=== PATIENT | female | born 1955 | race Caucasian/White ===

== ENCOUNTER 2017-06-01 15:02 | Emergency (ER) | payer SELFPAY ==
[2017-06-01] MEDS ORDERED: LORazepam 2 MG/ML INJ ONE ×2 (15:07→16:05)
[2017-06-01] MEDS ORDERED: HALOPERIDOL LACT 5 MG/ML INJ ONE ×2 (15:07→16:05)
[2017-06-01] MEDS ORDERED: HALOPERIDOL LACT 5 MG/ML INJ IM ONE ×2 (15:15→16:17)
[2017-06-01] MEDS ORDERED: LORazepam 2 MG/ML INJ IM ONE (15:15)
--- NOTE | 2017-06-01 15:26 | EDPHY ---
General Narrative: CHIEF COMPLAINT: M1 hold HISTORY OF PRESENT ILLNESS: Patient arrives on an M1 hold completed by [facility]. They documentation states that she was being combative and evicted from the day in and refusing to leave. She was exhibiting grave disability to them, thus they placed her on an M1 hold. She will not provide any information to me what so ever. She continues to yell at me asking me to leave an informed me that "you put me in a cold room, leave me the fuck alone." No other information obtainable from her. PSYCHIATRIC DIAGNOSES: Unable to obtain PRIOR PSYCHIATRIC EVALUATIONS: Unable to obtain M1/DETAINER: [place] just prior to arrival REVIEW OF SYSTEMS: Ten systems reviewed and are negative unless otherwise noted in the HPI EXAMINATION General Appearance: Alert, no distress, unkempt Head: normocephalic, atraumatic. No obvious outward signs of trauma Eyes: Moving her eye symmetrically. Unable to formally exam is she will not cooperate ENT, Mouth: Managing her secretions. Unable to formally examine she will not cooperate Neck: Normal inspection. Unable to formally examine she will not cooperate Respiratory: No retractions or distress.Unable to formally examine she will not cooperate Cardiovascular: Unable to palpate or auscultate due to lack of cooperation Gastrointestinal: No distention noted.Unable to formally examine she will not cooperate Neurological: Awake and alert. Unable to formally examined. Skin: Warm and dry, no rash. No obvious petechiae purpura Extremities: Moving all 4 extremities spontaneously Psychiatric: Agitated moved and aggressive conversation. Will not answer any of my questions DIFFERENTIAL DIAGNOSES: Including but not limited to grave Disability, intoxication, delirium, dehydration, substance abuse MDM: 3:22 p.m. M1 hold due to grave disability, completed by [facility]. The patient is completely uncooperative, agitated and combative prior to my examination. She will not provide any information to me. She will not cooperate with any physical exam. Intramuscular Haldol and Ativan has been administered. Her heart rate was elevated during her agitation, thus I asked her to be moved to room 18 to the we could monitor her. She is awake and very vocal and in no apparent acute distress. 4:10 p.m. Notified by RN that the patient is still not been compliant in that she has been able to obtain laboratory studies, EKG or urine. I have evaluated the patient with Dr. Felder. She still refuses to cooperate. She is laying in the position and will not allow us to obtain any further information or laboratory studies. We agree with additional 5 mg of IM Haldol, as well as 50 mg of Benadryl IM. 4:59 p.m. At this time the patient has become more somnolent cooperative. Laboratory studies have been drawn. EKG has been obtained. Chest x-ray has been ordered. At this time Dr. Felder will assume care the patient. She is pending medical clearance for psychiatric evaluation. EKG interpretation: Dr. Felder SUPERVISION: Patient was evaluated and examined in conjunction with my secondary supervising physician as documented. We have both examined the patient. (Tim Dong) Medical Decision Making: I have also seen the patient in the emergency department. The patient is uncooperative and does not answer questions. She tells me she wants to leave. The patient and I reviewed the history of being uncooperative with the police as well as uncooperative in the department. She has already received Haldol 5 mg and Ativan 2 mg IM but remains combative and noncooperative. She and I discussed further medication because of this behavior. I asked her again about allergies as she has refused answer. She refused to answer me as well. I explained that we were going to be giving her further medication. She is given Haldol 5 mg and Benadryl 50 mg IM. Recheck again at 4:35 p.m.. Patient is stable Re-evaluation 6:25 p.m.. Patient sleeping. 30 milliliter/kilogram fluid bolus. Blood cultures were obtained. IV Rocephin. Patient's lactate is normal. On serial evaluations patient remains stable. She is awaiting mental health evaluation. Differential diagnosis is that the patient has a apparent community-acquired pneumonia. She is not hypoxic. She has no evidence for sepsis. She has been treated initially for her pneumonia. She is also waiting mental health evaluation for being gravely disabled Care to Dr. Harris at 2310 (Toño Felder) 2310 care assumed by me from Dr. Felder pending mental health evaluation. ( Manuel Harris) I assumed care of the patient of the patient at 0700. The patient was seen by Mental Health. She is now common cooperative. She reports that she is currently homeless. She has typically been receiving her care in [place]. She denies significant psychiatric history. She does likely suffer from a personality disorder. She was found not to be suicidal, homicidal or gravely disabled by the psychiatric branch service representative. Dr. Dorian Velazquez vacated the patient's 72 hr hold. The patient was discharged home with a prescription for her outpatient amoxicillin for treatment of a subtle pneumonia. (Elmer Hoang) - Diagnostics Imaging Results: Imaging Impressions Chest X-Ray 06/01/17 16:59 Impression: 1. Patchy infiltrate, consistent with pneumonia at the right lung base. 2. There are a couple of questionable nodular opacities in the left mid and upper lung zones. The above findings should be reevaluated in 4 weeks to assure resolution. If persistent, chest CT imaging would be indicated. 3. Retrocardiac hiatal hernia. 4. Rotatory thoracolumbar scoliosis. Findings were discussed with Toño Felder M.D. at 18:02, on 06/01/2017. Chest x-ray reviewed by me and discussed with Dr. Lyons shows a right lower lobe pneumonia. (Toño Felder) - Objective Vital Signs: Initial Vital Signs Temperature (C) 99.0 F 06/01/17 15:02 Heart Rate 137 H 06/01/17 15:02 Respiratory Rate 20 06/01/17 15:02 Blood Pressure 159/99 H 06/01/17 15:02 O2 Sat (%) 88 L 06/01/17 15:02 O2 Delivery Mode Room Air Allergies/Adverse Reactions: No Known Allergies Allergy (Verified 06/02/17 08:49) Home Medications: Medication Instructions Recorded Amoxicillin Trihydrate [Amoxil] 500 mg PO TID 7 Days cap 06/01/17 Laboratory Results: Laboratory Results 06/01/17 16:57 06/01/17 16:57 Microbiology Results: MICROBIOLOGY 06/01/17 19:25 Blood Blood Culture - Preliminary 06/01/17 18:50 Blood Blood Culture - Preliminary Medications Given: Discontinued Medications Amoxicillin (Amoxicillin) 500 mg PO TID SUKHJINDER PRN Reason: Protocol Stop: 06/08/17 08:59 Last Admin: 06/02/17 07:58 Dose: 500 mg Diphenhydramine HCl (Benadryl Injection) 50 mg IM EDNOW ONE Stop: 06/01/17 16:17 Last Admin: 06/01/17 16:23 Dose: 50 mg Haloperidol Lactate (Haldol Injection) 5 mg IM EDNOW ONE Stop: 06/01/17 15:16 Last Admin: 06/01/17 15:15 Dose: 5 mg Haloperidol Lactate (Haldol Injection) 5 mg IM EDNOW ONE Stop: 06/01/17 16:18 Last Admin: 06/01/17 16:23 Dose: 5 mg Ceftriaxone Sodium/Dextrose (Rocephin 1 Gm (Premix)) 50 mls @ 100 mls/hr IV EDNOW ONE PRN Reason: Protocol Stop: 06/01/17 18:53 Last Admin: 06/01/17 20:04 Dose: 50 mls Sodium Chloride (Ns) 1,800 mls @ 300 mls/hr 30 ml/kg infuse over 6 hr (1800 ml ) IV EDNOW ONE PRN Reason: Protocol Stop: 06/02/17 00:23 Last Admin: 06/01/17 18:54 Dose: 1,800 mls Lorazepam (Ativan Injection) 2 mg IM EDNOW ONE Stop: 06/01/17 15:16 Last Admin: 06/01/17 15:15 Dose: 2 mg Departure - Departure Disposition: Home, Routine, Self-Care Clinical Impression: Pneumonia Qualifiers: Pneumonia type: due to unspecified organism Laterality: unspecified laterality Lung location: unspecified part of lung Qualified Code(s): J18.9 - Pneumonia, unspecified organism Condition: Good Instructions: Community Acquired Pneumonia (ED) Additional Instructions: 1. You have a pneumonia in your right lower lung. You have received IV antibiotics and I have written you a prescription for further oral antibiotics. Return for worsening symptoms. 2. Take oral antibiotics as prescribed. 3. Please schedule a [facility] for [facility]heck within the week. 4. Return to the emergency department for markedly worsening symptoms or other concerns. Referrals: [facility],. [Clinic] - As per Instructions Prescriptions: Amoxicillin Trihydrate [Amoxil] 500 mg PO TID 7 Days cap
--- NOTE | 2017-06-01 16:51 | CPEKG ---
Heart Rate: 114 RR Interval: 526 P-R Interval: 176 QRSD Interval: 92 QT Interval: 316 QTC Interval: 436 P Morton: -89 QRS Morton: 6 T Wave Morton: -36 EKG Severity - ABNORMAL ECG - EKG Impression: ECTOPIC ATRIAL TACHYCARDIA EKG Impression: PROBABLE LEFT ATRIAL ABNORMALITY EKG Impression: LOW VOLTAGE IN FRONTAL LEADS EKG Impression: PROBABLE POSTERIOR INFARCT EKG Impression: ABNORMAL T, PROBABLE ISCHEMIA, INFERIOR LEADS Electronically Signed By: Brenden Calderón 02-Jun-2017 13:58:21
[2017-06-01 17:08] LABS: PLATELET COUNT 462 10^3/uL (150-400)
[2017-06-01] MEDS ORDERED: NS 1,800 ML IV ONE (18:24)
[2017-06-02 08:06] VITALS: BP 114/72; PULSE 92; RESP 17; TEMP 98.4; O2SAT 91
== END 2017-06-02 13:37 | disposition home or self-care (01) ==
DX: J18.9 Pneumonia, unspecified organism (principal)
CPT/HCPCS: 80305; 96365; G0480; J0696; J1200; J1630; J2060

== ENCOUNTER 2017-06-05 11:08 | Emergency (ER) | payer OTHER ==
[~2017-06-05 11:08] MED LIST: AZITHROMYCIN 250 MG TAB PO SCH
[2017-06-05 11:19] VITALS: TEMP 98.1
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
[2017-06-05 14:57] VITALS: BP 110/60; PULSE 80; RESP 14; O2SAT 96
== END 2017-06-05 14:55 | disposition home or self-care (01) ==
DX: S92.424A Nondisplaced fracture of distal phalanx of right great toe, initial encounter for closed fracture (principal); J18.9 Pneumonia, unspecified organism; W23.0XXA Caught, crushed, jammed, or pinched between moving objects, initial encounter
CPT/HCPCS: 71046; 73630; 99284; L4386

== ENCOUNTER 2017-06-06 11:56 | Emergency (ER) | payer OTHER ==
[2017-06-06 12:03] VITALS: O2SAT 97
--- NOTE | 2017-06-06 12:16 | EDPHY ---
H & P Stated Complaint: RX Rqst, Wants Housing Placement, Chronic Back Pain Time Seen by Provider: 06/06/17 12:15 - Personal History Current Tetanus/Diphtheria Vaccine: No Current Tetanus Diphtheria and Acellular Pertussis (TDAP): No - Medical/Surgical History Hx Asthma: No Hx Chronic Respiratory Disease: No Hx Diabetes: No Hx Cardiac Disease: No Hx Renal Disease: No Hx Cirrhosis: No Hx Alcoholism: No Hx HIV/AIDS: No Hx Splenectomy or Spleen Trauma: No Other PMH: scoliosis arthritis - Social History Smoking Status: Never smoked Constitutional: Initial Vital Signs Temperature (C) 36.6 C 06/06/17 12:00 Heart Rate 94 06/06/17 12:00 Respiratory Rate 18 06/06/17 12:00 Blood Pressure 126/79 H 06/06/17 12:00 O2 Sat (%) 97 06/06/17 12:00 O2 Delivery Mode Room Air Allergies/Adverse Reactions: No Known Allergies Allergy (Verified 06/02/17 08:49) Home Medications: Medication Instructions Recorded Azithromycin [Zithromax] 250 mg PO DAILY #6 tab 06/05/17 Cartilage/Collagen/Bor/Hyalur 1 each PO DAILY #30 tablet 06/06/17 [Move Free Ultra Tablet] Lidocaine 5% [Lidoderm 5% Patch 2 ea TD DAILY #10 patch 06/06/17 (*)] Naproxen Sodium [Naproxen Sodium 375 mg PO BID #10 tbmp.24hr 06/06/17 ER] Medical Decision Making ED Course/Re-evaluation: CHIEF COMPLAINT: Back pain, prescription requests, help findings housing. HISTORY OF PRESENT ILLNESS: The patient is a homeless 61 y/o female requesting help with finding housing and prescriptions for her chronic lower back pain. She has a history of scoliosis causing chronic back pain. She denies any acute changes in her symptoms. No fever, cough, weakness, paresthesias, recent trauma or illness, chest pain, dyspnea. REVIEW OF SYSTEMS: A 10 point review of systems was performed and is negative with the exception of the elements mentioned in the history of present illness. PHYSICAL EXAM: HR, BP, O2 Sat, RR. Temp noted General Appearance: Alert, well hydrated, appropriate, and non-toxic appearing. Elderly, thin. Head: Atraumatic without scalp tenderness or obvious injury Eyes: Pupils equal, round, reactive to light and accommodation, EOMI, no trauma , no injection. Nose: Atraumatic, no rhinorrhea, clear. Throat: Mucus membranes moist. Neck: Supple, nontender, no lymphadenopathy. Respiratory: No retractions, no distress, no wheezes, and no accessory muscle use. Lungs are clear to auscultation bilaterally. Cardiovascular: Regular rate and rhythm, no murmurs, rubs, or gallops.Good capillary refill all extremities. Gastrointestinal: Abdomen is soft, nontender, non-distended, no masses, no rebound, no guarding, no peritoneal signs. Musculoskeletal: Normal active ROM of all extremities, atraumatic. Neurological: Alert, appropriate, and interactive. The patient has non-focal cranial nerves, motor, sensory, and cerebellar exam. Skin: No rashes, good turgor, no nodules on palpation. Past medical history: Scoliosis, chronic back pain Past surgical history: Noncontributory Family history: Noncontributory Social history: Homeless, nonsmoker, unemployed. DIFFERENTIAL DIAGNOSIS: The differential diagnosis for the patient's back pain included but was not limited to scoliosis with chronic pain, musculoskeletal pain, limited access to resources due to homelessness. MEDICAL DECISION MAKING: This is a homeless 61 y/o female who presents requesting medication refills for her chronic back pain and assistance with case management to access housing resources. She denies any acute complaints or changes in her back pain from baseline. She is neurovascularly intact. Case management has arranged to work with her as an outpatient on Thursday. She is specifically requesting scripts for MoveFree Ultra supplement, Lidocaine patches, and Naproxen. She does not want any additional work up for her symptoms today, only medication. She will be discharged with the scripts she requested and contact information for rehabilitation case coordinator. She is happy with this plan. Departure - Departure Disposition: Home, Routine, Self-Care Clinical Impression: Medication refill Chronic back pain Qualifiers: Back pain location: low back pain Back pain laterality: left Sciatica presence : unspecified whether sciatica present Qualified Code(s): M54.5 - Low back pain Condition: Good Instructions: Chronic Back Pain (ED), Medicine Refill (ED) Additional Instructions: Take medications and prescriptions as directed. Follow up with case management on Thursday for guidance with housing assistance. Follow up with your primary care provider for back pain management. Return for worsening of condition. Referrals: [facility],. [Clinic] - As per Instructions Prescriptions: Cartilage/Collagen/Bor/Hyalur [Move Free Ultra Tablet] 1 each PO DAILY #30 tablet Lidocaine 5% [Lidoderm 5% Patch (*)] 2 ea TD DAILY #10 patch Naproxen Sodium [Naproxen Sodium ER] 375 mg PO BID #10 tbmp.24hr Report Scribed for: Henrik Muir Report Scribed by: Laura Bernardo Date of Report: 06/06/17 Time of Report: 14:37
--- NOTE | 2017-06-06 12:53 | ASMTCMCOM ---
CM Note CM Note Notes: Spoke with patient at length about her homelessness and accessing resources. Patient was in the ED and 06/05. Patient came to [place] on March 09 and was initially in the [place] area staying at hotels and shelters there before coming to [place]. She was staying at hotels until she could no longer afford it. She has been staying at the [place] [facility] the last few nights; patient states she has an appointment with a watch caser at [facility] this Thursday afternoon and they are going to discuss housing,etc. Patient has been referred to [facility] the last two ED visits and provided thorough information on PC location, homeless drop-in hours, etc but she reports she doesn't know where it is or how to get seen. This CM will re-provide PC homeless drop-in hours and also plan on calling PC on Thursday to see if JOSE LUIS Alvarez Homeless Outreach RN can reach out to patient. Patient states she lost her cell phone. Patient says she plans on taking a bus to [place] this Thursday or because "it is going to be too cold here," and then return to [place] before returning to her home in [place] where she owns a home. Patient states she receives her disability check on Jun 27 and so then she'll go to [place]. Patient plans to stay in [place] the first couple of weeks of June "to escape the bitter cold," and then return to [place] so she can still get [place] residency by August. Patient has a walker and various bags and belongings. Patient requesting a Rxn for Naproxen and Flexeril (for back pain); ED MD notified. CM to follow up on Thursday06/09/17 Date Signed: 06/06/2017 12:52 PM Electronically Signed By:Dyana Tamayo RN
--- NOTE | 2017-06-06 12:56 | ASDISCHSUM ---
Discharge Information Plan Status:Homeless/[facility] Medically Cleared to Leave: Discharge Date: CM D/C Disposition:Streets (Homeless) ADT D/C Disposition:Home, Routine, Self-Care Projected Discharge Date: Transportation at D/C:Self Discharge Delay Reason: Follow-Up Date: Discharge Slot: Final Diagnosis: Placement Information Patient Contact Information Contact Name:GRISEL Relationship:Legal guardian Address:[address] Work Phone: City: [facility] Phone: State/Zip Code: Email: Financial Information Financial Class:Medicare Advantage Plans Primary Plan Desc:[facility] Primary Plan Number:[id number] Secondary Plan Desc: Secondary Plan Number: Assessment Information [facility] Progress Note CM Note CM Note Notes: Spoke with patient at length about her homelessness and accessing resources. Patient was in the ED and 06/05. Patient came to [place] on March 09 and was initially in the [place] area staying at hotels and shelters there before coming to [place]. She was staying at hotels until she could no longer afford it. She has been staying at the [place] [facility] the last few nights; patient states she has an appointment with a nurse case manager at [facility] this Thursday afternoon and they are going to discuss housing,etc. Patient has been referred to [facility] the last two ED visits and provided thorough information on PC location, homeless drop-in hours, etc but she reports she doesn't know where it is or how to get seen. This CM will re-provide PC homeless drop-in hours and also plan on calling PC on Thursday to see if Kim [facility]eless Outreach RN can reach out to patient. Patient states she lost her cell phone. Patient says she plans on taking a bus to [place] this Thursday or because "it is going to be too cold here," and then return to [place] before returning to her home in [place] where she owns a home. Patient states she receives her disability check on Jun 27 and so then she'll go to [place]. Patient plans to stay in [place] the first couple of weeks of June "to escape the bitter cold," and then return to [place] so she can still get [place] residency by August. Patient has a walker and various bags and belongings. Patient requesting a Rxn for Naproxen and Flexeril (for back pain); ED MD notified. CM to follow up on Thursday06/09/17 Date Signed: 06/06/2017 12:52 PM Electronically Signed By:Dyana Tamayo RN LACE LACE Acuity / Level of Care Answers: No. Emergency dept visits in Answers: 3 last 6 months Score: 3 Date Signed: 06/06/2017 12:55 PM Electronically Signed By:Dyana Tamayo RN Intervention Information
[2017-06-06 13:04] VITALS: BP 142/80; PULSE 93; RESP 15; TEMP 98.8
== END 2017-06-06 13:04 | disposition home or self-care (01) ==
DX: Z76.0 Encounter for issue of repeat prescription (principal); M54.5 Low back pain; G89.29 Other chronic pain

== ENCOUNTER 2017-06-08 12:09 | Emergency (ER) | payer OTHER ==
[2017-06-08 12:27] VITALS: BP 157/89
[2017-06-08 12:30] VITALS: PULSE 93; RESP 18; O2SAT 91
--- NOTE | 2017-06-08 16:17 | ASMTCMCOM ---
CM Note CM Note Notes: Spoke with patient in the ED waiting area. Patient presents to the ED for medication assistance, including getting her Lidocaine patches because her insurance (Medicare) won't cover the Rx, mucinex, naproxen, etc. This CM explained all of these medications can be purchased OTC. Patient has limited funds but she agreed she might be able to afford at least the lidocaine patches. This CM worked with patient on 06/06/17 and dc plan at that time was to follow up with [facility] this week. [facility] and says she will reach out to the RN who will be there on from 8-10am. This CM offered pt a cab voucher to [facility] at the [facility] but pt declined; stating she could really just use a bus pass so she can get to the transit center. Patient states she has an appt w/registered nurse [facility] case manager at the [facility] at 4:30pm "for assisted living." Bus pass provided and also provided an extra post-op shoe per pt's request so she can wear it on her left foot to help decrease the difference in height between her legs. Patient states she still plans on returning to [place] on Jun.27 once she gets her disability check; pt has plans to follow-up with her PCP, thermite welder, orthopedist credit collection specialist, etc. when she returns there. Date Signed: 06/08/2017 04:17 PM Electronically Signed By:Dyana Tamayo RN
--- NOTE | 2017-06-08 16:18 | ASDISCHSUM ---
Discharge Information Plan Status:Homeless/Longterm Medically Cleared to Leave: Discharge Date:06/08/2017 01:33 PM CM D/C Disposition:Streets (Homeless) ADT D/C Disposition:Left Without Being Seen Projected Discharge Date:06/08/2017 01:33 PM Transportation at D/C:Bus Ticket Discharge Delay Reason: Follow-Up Date:06/08/2017 01:33 PM Discharge Slot: Final Diagnosis: Placement Information Patient Contact Information Contact Name:MASSIELAPTMECUM Relationship:Legal guardian Address:PTS POA Work Phone: City: [facility] Phone: State/Zip Code: Email: Financial Information Financial Class:Medicare Advantage Plans Primary Plan Desc:ESTHELA BERRIOS PPO MEDICARE Primary Plan Number:[id number] Secondary Plan Desc: Secondary Plan Number: Assessment Information [facility] Progress Note CM Note CM Note Notes: Spoke with patient in the ED waiting area. Patient presents to the ED for medication assistance, including getting her Lidocaine patches because her insurance (Medicare) won't cover the Rx, mucinex, naproxen, etc. This CM explained all of these medications can be purchased OTC. Patient has limited funds but she agreed she might be able to afford at least the lidocaine patches. This CM worked with patient on 06/06/17 and dc plan at that time was to follow up with [facility] this week. Patient has been staying at the [facility] and says she will reach out to the RN who will be there on from 8-10am. This CM offered pt a cab voucher to [facility] at the [facility] but pt declined; stating she could really just use a bus pass so she can get to the transit center. Patient states she has an appt w/case supervisor at the [facility] at 4:30pm "for assisted living." Bus pass provided and also provided an extra post-op shoe per pt's request so she can wear it on her left foot to help decrease the difference in height between her legs. Patient states she still plans on returning to [place] on Jun.27 once she gets her disability check; pt has plans to follow-up with her PCP, sandblast operator, orthopedist business services specialist sales, etc. when she returns there. Date Signed: 06/08/2017 04:17 PM Electronically Signed By:Dyana Tamayo RN Intervention Information Intervention Type:Bus Pass Date of Service:06/08/2017 04:17 PM Patient Type:Emergency Room Staff Member:TEODORO Tamayo, Dyana Hours:0.25 Discipline:Private Banker Severity: Comment:bus pass provided
== END 2017-06-08 13:33 | disposition left against medical advice (07) ==
DX: Z53.21 Procedure and treatment not carried out due to patient leaving prior to being seen by health care provider (principal)

== ENCOUNTER 2017-07-22 12:56 | Emergency (ER) | payer OTHER ==
--- NOTE | 2017-07-22 13:53 | EDPHY ---
H & P Stated Complaint: swelling in hands and feet Time Seen by Provider: 07/22/17 13:53 HPI/ROS: CHIEF COMPLAINT: Peripheral edema HISTORY OF PRESENT ILLNESS: The patient presents to the ED for evaluation of mild peripheral edema. The patient has mild edema in her arms and legs. She reports this has been increasing over the past week. The patient denies prior history of renal disease or hypertension. The patient denies any chest pain or shortness of breath. The patient denies any additional acute complaints. REVIEW OF SYSTEMS: A comprehensive 10 point review of systems is otherwise negative aside from elements mentioned in the history of present illness. Source: Patient Exam Limitations: No limitations - Personal History Current Tetanus/Diphtheria Vaccine: No - Medical/Surgical History Hx Asthma: No Hx Chronic Respiratory Disease: No Hx Diabetes: No Hx Cardiac Disease: No Hx Renal Disease: No Hx Cirrhosis: No Hx Alcoholism: No Hx HIV/AIDS: No Hx Splenectomy or Spleen Trauma: No Other PMH: scoliosis arthritis - Social History Smoking Status: Current every day smoker - Physical Exam Exam: General Appearance: Elderly female, slightly disheveled Eyes: Pupils equal and round no pallor or injection ENT, Mouth: Mucous membranes moist, poor dentition Respiratory: There are no retractions, lungs are clear to auscultation Cardiovascular: Regular rate and rhythm Gastrointestinal: Abdomen is soft and nontender, no masses, bowel sounds normal Neurological: 5/5 strength all 4 extremities Skin: Warm and dry, no rashes Musculoskeletal: Neck is supple nontender Extremities: symmetrical, full range of motion, trace edema noted in the hands and lower extremity Constitutional: Initial Vital Signs Temperature (C) 36.8 C 07/22/17 13:02 Heart Rate 90 07/22/17 13:02 Respiratory Rate 18 07/22/17 13:02 Blood Pressure 144/75 H 07/22/17 13:02 O2 Sat (%) 95 07/22/17 13:02 O2 Delivery Mode Room Air Allergies/Adverse Reactions: No Known Allergies Allergy (Verified 07/22/17 13:01) Home Medications: Medication Instructions Recorded NK [No Known Home Meds] 07/22/17 Medical Decision Making ED Course/Re-evaluation: The patient has very mild peripheral edema. She has a normal creatinine. She is not hypertensive. The patient refused to provide a urinalysis to assess for proteinuria. The patient has no clinical evidence of congestive heart failure. At this point time I do feel that she can follow up with her primary care provider or [facility] for further evaluation. - Data Points Laboratory Results: Laboratory Results 07/22/17 14:26 07/22/17 14:26 07/22/17 07/22/17 14:26 14:26 WBC 8.21 10^3/uL 10^3/uL (3.80-9.50) RBC 4.29 10^6/uL 10^6/uL (4.18-5.33) Hgb 12.5 g/dL L g/dL (12.6-16.3) Hct 37.8 % L % (38.0-47.0) MCV 88.1 fL fL (81.5-99.8) MCH 29.1 pg pg (27.9-34.1) MCHC 33.1 g/dL g/dL (32.4-36.7) RDW 15.1 % % (11.5-15.2) Plt Count 401 10^3/uL H 10^3/uL (150-400) MPV 8.4 fL L fL (8.7-11.7) Neut % (Auto) 64.5 % % (39.3-74.2) Lymph % (Auto) 27.6 % % (15.0-45.0) [place] % (Auto) 5.8 % % (4.5-13.0) Eos % (Auto) 1.2 % % (0.6-7.6) Baso % (Auto) 0.5 % % (0.3-1.7) Nucleat RBC Rel Count 0.0 % % (0.0-0.2) Absolute Neuts (auto) 5.29 10^3/uL 10^3/uL (1.70-6.50) Absolute Lymphs (auto) 2.27 10^3/uL 10^3/uL (1.00-3.00) Absolute Monos (auto) 0.48 10^3/uL 10^3/uL (0.30-0.80) Absolute Eos (auto) 0.10 10^3/uL 10^3/uL (0.03-0.40) Absolute Basos (auto) 0.04 10^3/uL 10^3/uL (0.02-0.10) Absolute Nucleated RBC 0.00 10^3/uL 10^3/uL (0-0.01) Immature Gran % 0.4 % % (0.0-1.1) Immature Gran # 0.03 10^3/uL 10^3/uL (0.00-0.10) Sodium TNP Potassium 4.5 mEq/L mEq/L (3.5-5.2) Chloride 104 mEq/L mEq/L (97-110) Carbon Dioxide 22 mEq/l mEq/l (22-31) Anion Gap 10 mEq/L mEq/L (8-16) BUN 15 mg/dL mg/dL (7-23) Creatinine 0.8 mg/dL mg/dL (0.6-1.0) Estimated GFR > 60 Glucose 85 mg/dL mg/dL (70-100) Calcium 9.5 mg/dL mg/dL (8.5-10.4) TSH 1.510 uIU/mL uIU/mL (0.465-4.680) Departure - Departure Disposition: Home, Routine, Self-Care Clinical Impression: Peripheral edema Condition: Good Instructions: Leg Edema (ED) Additional Instructions: 1. Please follow up with [facility] for further evaluation. 2. You have no evidence of congestive heart failure. You do have mild peripheral edema. I recommend elevating your extremities at night. Referrals: [facility],. [Clinic] - As per Instructions
[2017-07-22 14:44] LABS: PLATELET COUNT 401 10^3/uL (150-400)
[2017-07-22 15:38] VITALS: BP 176/109; PULSE 98; RESP 16; TEMP 98.1; O2SAT 97
== END 2017-07-22 15:41 | disposition home or self-care (01) ==
LOC: EEVIPCON 12:56
DX: R60.0 Localized edema (principal); F17.200 Nicotine dependence, unspecified, uncomplicated

== ENCOUNTER 2018-07-24 13:40 | Emergency (ER) | payer SELFPAY, OTHER | END 2018-07-24 14:40 | disposition left against medical advice (07) ==

== ENCOUNTER 2018-07-24 14:48 | Emergency (ER) | payer SELFPAY, OTHER | END 2018-07-24 16:42 | disposition home or self-care (01) ==